=== PATIENT | female | born 1950 | race Caucasian/White ===

== ENCOUNTER 2017-06-07 06:24 | Day surgery (SDC) | payer MEDICARE, OTHER ==
[~2017-06-07] VITALS: Ht 157.5 cm; Wt 60.0 kg
--- NOTE | ~2017-06-07 | OP ---
PATIENT NAME: JOSE STUART MEDICAL RECORD: [id number] :46 LOCATION:D.OPS ADMISSION DATE: SURGEON: MINGO WEINBERG MD DATE OF OPERATION: 06/07/2017 PREOPERATIVE DIAGNOSIS: History of regrowth of an ascending colon polyp, tattooed. POSTOPERATIVE DIAGNOSES: History of regrowth of an ascending colon polyp, tattooed with no evidence of persistence or regrowth of the polyp. PROCEDURES: 1. Total colonoscopy to cecum. 2. Biopsies of the scar at the site of the prior polypectomy and then ablation of the tissue and hemostasis with the argon plasma cylinder handler. SURGEON: Mingo Weinberg MD RENTAL CAR FERRY DRIVER: None. BLOOD LOSS: Minimal. ANESTHESIA: General. COMPLICATIONS: None. INDICATION: The risks, possible complications and alternatives to procedure were explained to the patient. She elects to proceed. OPERATIVE COURSE: The patient was conveyed to the operating room electively on 06/07/2017. General anesthesia was induced by the anesthesia staff. The patient was placed in the [place] position. A digital rectal examination was performed. A colonoscope was inserted through the anus. It was easily advanced to the cecum. The prep was adequate. I slowly withdrew the endoscope. I easily identified the tattoo in the ascending colon. The scar was very prominent. I used normal imaging as well as narrow band imaging. I noted no evidence of regrowth of the polyp or persistence of the polyp. I biopsied the scar with the cold endoscopic biopsy forceps. I then ablated the scar and the surrounding tissue with the argon plasma cylinder handler, which also ensured hemostasis utilizing the right colon setting in the forced mode. I slowly withdrew the endoscope. I irrigated and aspirated extensively. I dragged the folds. The pullback was greater than an 18-minute pullback. A retroflexed view was obtained in the rectum. I then unretroflexed the scope and removed it under direct vision. I will plan on seeing the patient in my office in 2-3 weeks. At that time, it is very likely I will return the patient's endoscopic care back over to her captain waiter, Dr. Wheeler. TRANSINT:[id number] Voice Confirmation ID: [id number] DOCUMENT ID: [id number] OPERATIVE REPORT [id number] JOSE STUART MINGO WEINBERG MD at 1042 CC: LOREE HANSEN M.D., NILA WHEELER and HAILE ESPINOSA [id number] DICTATION DATE: 06/07/17 1104 [place]: 06/07/17 1206 [facility] 06/07/17 [place] [id number] [place] [id number]
[~2017-06-07 06:24] MED LIST: ALIGN4 MG PO; ANASTROZOLE1 MG PO; BYSTOLIC10 MG PO; CITRACAL + D E1 EACH PO; MAG-OXIDE400 MG PO; METHOTREXATE2.5 MG PO; MULTIPLE VITAMI1 TA1 PO; NORVASC10 MG PO; PRAVASTATIN SOD10 MG PO; PREDNISONE5 MG PO; VITAMIN D31000 UNI2 PO
[2017-06-07 07:42] VITALS: Ht 157.5 cm; Wt 60.0 kg
[2017-06-07 07:48] LABS: ANION GAP 14.2 mmol/L (8-16); CALCIUM 9.1 mg/dL (8.5-10.1); CARBON DIOXIDE 25.1 mmol/L (21.0-32.0); POTASSIUM - SERUM 3.3 mmol/L (3.5-5.1)
[2017-06-07 07:51] LABS: APTT 30.4 SECONDS (22.8-39.4); INR 0.98 (0.85-1.17); PROTIME 12.6 SECONDS (11.6-15.0)
[2017-06-07 08:36] LABS: BASOPHILS 0.3 % (0-2); EOSINOPHILS 2.8 % (0-7); HEMATOCRIT 35.2 % (36.0-48.0); HEMOGLOBIN 11.8 g/dL (12-16); LYMPHOCYTES 46.1 % (15-50); MCH 32.3 pg (26.0-34.0); MCHC 33.5 g/dL (31.0-37.0); MCV 96.4 fL (80.0-100.0); MEAN PLATELET VOLUME 9.2 fL (7.4-10.4); MONOCYTES 7.6 % (2-11); NEUTROPHILS 43.2 % (40-80); RBC 3.65 10x6/uL (4.00-5.40); RDW 13.5 % (11.5-14.5); WBC 6.9 10x3/uL (4.8-10.8)
[2017-06-07 08:37] LABS: PLATELET COUNT 280 10x3/uL (130-400)
== END 2017-06-07 12:00 | disposition home or self-care (01) ==
LOC: D.OPS 06:24 → D.PAN 09:00 → D.OPS 09:40 → D.PAN 07-05 08:00
PROVIDERS: Anesthesiology
DX: Z86.010 Personal history of colon polyps (principal); K52.89 Other specified noninfective gastroenteritis and colitis; Z01.812 Encounter for preprocedural laboratory examination

== ENCOUNTER → 2017-06-14 18:47 | Outpatient (CLI) | payer MEDICARE, OTHER ==
[2017-06-07 07:42] VITALS: BMI 24.2
== END | disposition home or self-care (01) ==
LOC: D.LABREF 18:47
DX: L02.31 Cutaneous abscess of buttock (principal)